=== PATIENT | female | born 1970 | race Caucasian/White ===

== ENCOUNTER 2020-06-02 14:43 | Outpatient (CLI) | payer BC | END 2020-06-02 14:44 | disposition home or self-care (01) | LOC: DTY/OP 14:43 | PROVIDERS: ATTEND Family Medicine | DX: E66.3 Overweight (principal) | CPT/HCPCS: 97802 ==

== ENCOUNTER 2022-07-17 08:34 | Outpatient (CLI) | payer BC | END 2022-07-17 08:35 | disposition home or self-care (01) | LOC: RAD 08:34 | PROVIDERS: ATTEND Surgery | DX: K21.9 Gastro-esophageal reflux disease without esophagitis (principal); K44.9 Diaphragmatic hernia without obstruction or gangrene | CPT/HCPCS: 74220 ==

== ENCOUNTER 2022-09-05 15:25 | Outpatient (CLI) | payer BC | END 2022-09-05 15:26 | disposition home or self-care (01) | LOC: DTY/OP 15:25 | PROVIDERS: ATTEND Surgery | DX: E66.01 Morbid (severe) obesity due to excess calories (principal) | CPT/HCPCS: 97802 ==

== ENCOUNTER 2023-10-25 15:03 | Outpatient (CLI) | payer BC | END 2023-10-25 15:04 | disposition home or self-care (01) | LOC: BICMAMMO 15:03 | PROVIDERS: ATTEND Family Medicine | DX: Z12.31 Encounter for screening mammogram for malignant neoplasm of breast (principal) | CPT/HCPCS: 77063; 77067 ==